=== PATIENT | female | born 1955 | race Caucasian/White ===

== ENCOUNTER 2016-07-03 10:36 | Observation (INO) | payer MEDICARE, MEDICAID ==
[~2016-07-03] VITALS: Ht 149.9 cm; Wt 60.1 kg
--- NOTE | ~2016-07-03 | CST ---
Cardiac Perfusion Imaging Demographics Patient Name ELENA Munoz Gender Female Patient Number [id number] Race Visit Number [id number] Ethnicity or Corporate ID Room Number 424 Accession Number [id number] Height 59 inches Date of 1955 Weight 137 pounds Age 61 year(s) BSA 1.57 m Referring Physician Chun Ortiz MD BMI 27.67 kg/m Interpreting [facility] Date of study 07/04/2016 Physician King Juan Harding MD Supervising MD/MLP King Juan Harding MD NM Technologist Ramiro Fried, [facility] Ordering Physician Chun Ortiz MD Stress water supply technician Stress ECG Reading [facility] Nurse Angela Ruiz Physician King Juan Scott The procedure was explained in detail to the patient. Risks, complications and alternative treatments were reviewed. Written consent was obtained. Medications Reviewed with Patient prior to Procedure. Procedure Procedure Type: Nuclear Stress Test:Pharmacological, Cardiac Study SF Procedure Start time: 07/04/2016 07:30 Indications: Chest discomfort. Risk Factors The patient risk factors include:Current/Recent(w/in 1 year) tobacco use, hypertension and chronic lung disease. Conclusions Summary Perfusion Images: The overall quality of the study is good. Left ventricular cavity is noted to be normal on the stress and rest studies. There is no evidence of abnormal lung activity. The right ventricle is not visualized and cannot be assessed. Stress SPECT images demonstrate homogenous tracer distribution throughout the myocardium. Rest SPECT images demonstrate homogenous tracer distribution throughout the myocardium. Gated SPECT imaging reveals normal myocardial thickening and wall motion. The left ventricular ejection fraction was calculated to be 72%. Impression ECG portion of stress test is clinically negative for ischemia by diagnostic criteria. Myocardial perfusion imaging is normal. Overall left ventricular systolic function was normal without regional wall motion abnormalities. There are no previous studies for comparison. Stress Protocols Resting ECG Normal sinus rhythm. ST and T waves consistent with LVH. Resting HR:66 bpm Resting BP:144/82 mmHg Stress Protocol:Pharmacologic Predicted HR: 159 bpm Test duration: 06:00 min Reason for termination:Infusion complete ECG Findings Normal sinus rhythm. ST and T waves consistent with LVH Symptoms Vomiting Complications Procedure complication: None. Stress Interpretation Appropriate hemodynamic response to Lexiscan. No significant ST-T wave changes with Lexiscan. ECG portion is negative for ischemia by diagnostic criteria. Imaging Results Summed scores - Summed stress score: 0 - Summed rest score: 0 - Summed difference score: 0 Stress ejection Ejection fraction:72 % EDV :65 ml ESV :18 ml Stroke volume :47 ml LV mass :102 gr Imaging Protocols Rest Stress Isotope:Tc99m Myoview IV Isotope: Tc99m Myoview IV Isotope dose:10.6 mCi Isotope dose:32.1 mCi Date:07/04/2016 06:15 Date:07/04/2016 07:30 Technique: SPECT Technique: Gated Supine SPECT Supine IV remains in place after procedure. Scan Time:30 minutes post injection Scan Time:15-30 minutes post injection Procedure Medications - Regadenoson (Lexiscan) 0.4 mg IV over 10-15 sec. I.V. 0.4 mg. - Aminophylline 50 mg IV I.V. 150 mg. Medications administered per verbal order and read back to physician prior to administration. Medical History Admission Data Admission date: 07/03/2016 Admission Time: 12:40 Hospital Status: Inpatient. Signatures
[~2016-07-03 10:36] MED LIST: CALCIUM 600 +1 EAC2 PO; GABAPENTIN100 MG PO; LAMICTAL200 MG PO; LISINOPRIL-HCT1 EAC2 PO; PRISTIQ50 MG PO; PROTONIX40 MG PO; SYNTHROID DPS0.15 MG PO; VITAMIN B-12500 MCG PO; VITAMIN C100 MG PO; VITAMIN D31000 UNIT PO; WELLBUTRIN XL150 MG PO
--- NOTE | 2016-07-05 14:51 | HP ---
ADMIT: 07/03/2016 RM/LOC: 424 [facility] MR#: [id number] [id number] [facility] [address] [place], [place] [address] [facility] [address] [place] [address] History and Physical SEX: F AGE: 61 : 1955 DATE OF SERVICE: CHIEF COMPLAINT: Chest pain. HISTORY OF PRESENT ILLNESS: The patient is a 61-year-old female, normally sees Dr. Morales in the clinic, who looks aged beyond her years. She reports onset this morning around 8:00 a.m. of substernal chest pain. Overall nonradiating. Has some associated shortness of breath with it. Just some chest heaviness and occasional sharp pain. Has not had anything similar to this in the past. Last had a stress test about 13 years ago, which was negative she states. Otherwise, no real major cardiac history other than hypertension, poorly controlled. Recently was in the office and had some change in her blood pressure medications. There was recently change in medications for her history of peptic ulcer disease with improvement of her symptoms in that regard. This feels nothing like it she states. Otherwise, no nausea. No vomiting. No diaphoresis. No new cough. No new fevers. No chills. PAST MEDICAL HISTORY: 1. Hypothyroidism. 2. History of appendectomy. 3. History of Marilin-en-Y gastric bypass. 4. COPD, severe. 5. Ongoing tobacco abuse. 6. 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 7. Vitamin D deficiency. 8. Iron deficiency. 9. Positional sleep apnea. 10.Bipolar disorder. MEDICATIONS: She is on: 1. Amlodipine. 2. Bupropion. 3. Cetirizine. 4. Vitamin D3. 5. Fluticasone. 6. Lamictal. 7. Synthroid. 8. Lisinopril. 9. Hydrochlorothiazide. 10.Protonix. 11.Carafate. 12.Anoro Ellipta inhaler. FAMILY HISTORY: Significant for stroke in her mother. PAST SURGICAL HISTORY: 1. C-sections. ADMIT: 07/03/2016 RM/LOC: 424 [facility] MR#: [id number] [address] [address] PAR[facility] PARKER [address] [address] History and Physical SEX: F AGE: 61 : 1955 2. Gastric bypass with revision. 3. Cholecystectomy. 4. Cataract surgery. 5. Urethral surgery. 6. History of esophageal dilation. SOCIAL HISTORY: Lives at home. Tobacco history: She continues to smoke for many years. No ongoing now. REVIEW OF SYSTEMS: As per HPI. Otherwise, completely reviewed and negative. PHYSICAL EXAMINATION: VITAL SIGNS: Temperature 97.0, pulse 62, respiratory rate 20, blood pressure 150/71, and O2 saturation 95% on room air. GENERAL: She is alert and oriented x3. No acute distress. Ill-appearing overall. HEENT: Normocephalic and atraumatic. Pupils are equal bilaterally. Dry mucous membranes. NECK: No lymphadenopathy. Soft, supple. Trachea midline. LUNGS: Clear to auscultation bilaterally. No wheezes, rales, or rhonchi. HEART: Regular rate and rhythm. No murmurs, rubs, or gallops. PMI at 5th intercostal space. ABDOMEN: Soft, nontender, and nondistended. Bowel sounds present. EXTREMITIES: No cyanosis, clubbing, or edema. 2+ dorsal pedal pulses present bilaterally. MUSCULOSKELETAL: 5/5 strength in all 4 extremities. NEUROLOGICAL: No focal deficits noted. Cranial nerves II through XII grossly intact. SKIN: No rashes noted. Very dry. PSYCHIATRIC: Somewhat flat affect. Interacts well with her daughter. LABORATORY AND X-RAY DATA: Her EKG is reviewed. Some lateral nonspecific T- wave inversion changes. Otherwise, sinus rhythm without acute findings. Troponin is negative. Hemoglobin 16.1. Creatinine 1.1 and potassium 3.6. ADMIT: 07/03/2016 RM/LOC: 424 [facility] MR#: [id number] [address] [address] [facility] [address] [facility] [address] [place] [address] History and Physical SEX: F AGE: 61 : 1955 Chest x-ray is reviewed and is negative. ASSESSMENT: 1. Chest pain. 2. Hypertension. 3. Chronic obstructive pulmonary disease. 4. Gastric bypass history. 5. History of peptic ulcer disease. PLAN: We will continue her PPI, trend her troponin. I would recheck her EKG in the morning. We will get a stress test given her risk factors, hypertension, ongoing tobacco abuse. The patient is agreeable to plan. Braulio Mccollum MD/ ras JOB #: [id number] CC: Braulio Mccollum, Attending Physician Braulio Mccollum, Family Physician
[2016-07-05] MEDS ORDERED: SYNTHROID DPS0.2 MG PO (17:13)
[2016-07-05] MEDS ORDERED: PROTONIX40 MG PO (17:13)
[2016-07-05] MEDS ORDERED: VITAMIN D31000 UNIT PO (17:14)
[2016-07-05] MEDS ORDERED: CARAFATE D1 GM/10 ML PO (17:14)
[2016-07-05] MEDS ORDERED: ZYRTEC DPS10 MG PO (17:14)
[2016-07-05] MEDS ORDERED: CYANOCOBAL1000 MCG/1 IM (17:15)
[2016-07-05] MEDS ORDERED: ZESTORETIC 20/21 TAB PO (17:16)
[2016-07-05] MEDS ORDERED: NORVASC5 MG PO (17:17)
[2016-07-05] MEDS ORDERED: WELLBUTRIN XL300 MG PO (17:17)
[2016-07-05] MEDS ORDERED: ANORO ELLIPTA 62.1 - IH (17:17)
[2016-07-05] MEDS ORDERED: EFFEXOR XR75 MG PO (17:17)
--- NOTE | 2016-07-06 09:27 | DS ---
ADMIT: 07/03/2016 RM/LOC: 424 [facility] MR#: [id number] [address] [address] RICHARD PARKEROnel Munoz [address] [address] Discharge Summary SEX: F AGE: 61 : 1955 ADMISSION DATE: 07/03/2016 DISCHARGE DATE: 07/04/2016 DISCHARGE DIAGNOSES: 1. Chest pain atypical with noncardiac origin. 2. Negative stress test. 3. History of gastric bypass surgery. 4. Hypertension. 5. Status post cholecystectomy. 6. History of CVA (cerebrovascular accident). 7. History of uterine ablation. 8. Severe depression. 9. History of suicide attempt. 10.History of COPD (chronic obstructive pulmonary disease). 11.B12 deficiency. 12.Hypothyroidism. HOSPITAL COURSE: The patient was admitted. She was continued on her home medications. She had serial cardiac enzymes and EKGs done, which were not significant, showed no ischemic changes. She had a stress test which was normal. Therefore, it was felt that she was stable to be discharged home with outpatient workup of her of her chest pain. Otherwise, she was discharged on her home medications, which were not changed at all. Please see the chart for further summary. Leydi Morales MD/ dana JOB #: [id number] CC: Leydi Morales MD, Attending Physician Braulio Mccollum MD, Family Physician
--- NOTE | 2016-07-08 10:35 | ER ---
ADMIT: 07/03/2016 RM/LOC: [address] [facility] MR#: [id number] [id number] [facility] [address] [place], [place] [address] [facility] PARKER [address] [facility] [address] [place] [address] Emergency Room Report SEX: F AGE: 61 : 1955 DATE: 07/03/2016 ADDENDUM: A 61-year-old white female, coming in with chest pain. She is a long-standing smoker. Has COPD. Has peripheral vascular disease. She has had a gastric bypass in the past. She has hypothyroidism. Peripheral vascular disease is questionable she has not had any bypass or anything. The COPD is significant and longstanding. Nitroglycerin took her pain away. She continued to keep smoking even on her COPD. At this time, I spoke to Dr. Mccollum, who will admit as a rule out for Dr. Morales. CONDITION ON DISCHARGE: Serious, but stable. Nikos Villaseñor MD/ modl JOB #: [id number] CC: Braulio Mccollum MD, Attending Physician Braulio Mccollum MD, Family Physician
[2016-11-23] MEDS ORDERED: LIPITOR80 MG PO (16:06)
[2016-11-23] MEDS ORDERED: VITAMIN C1000 MG PO (16:07)
[2016-11-23] MEDS ORDERED: ASPIRIN EC325 MG PO (16:07)
[2016-11-23] MEDS ORDERED: NEXIUM40 MG PO (16:08)
[2016-11-23] MEDS ORDERED: FLONASE 0.05% D16 GM NS (16:08)
[2016-11-23] MEDS ORDERED: ATROVENT NASAL15 ML NS (16:08)
[2016-11-23] MEDS ORDERED: OYSTER SHELL C500 MG PO (16:09)
[2016-11-23] MEDS ORDERED: PROVENTIL HFA6.7 GM IH (16:09)
[2016-11-23] MEDS ORDERED: COLACE-DPS100 MG PO (16:09)
== END 2016-07-04 13:21 | disposition home or self-care (01) ==
LOC: ER 10:36 → 4PCU 12:40
PROVIDERS: ADMIT Internal Medicine
DX: R07.89 Other chest pain (principal); I10 Essential (primary) hypertension; F32.9 Major depressive disorder, single episode, unspecified; E03.9 Hypothyroidism, unspecified; J44.9 Chronic obstructive pulmonary disease, unspecified; E53.8 Deficiency of other specified B group vitamins; Z90.49 Acquired absence of other specified parts of digestive tract; F31.9 Bipolar disorder, unspecified; Z79.899 Other long term (current) drug therapy; Z98.890 Other specified postprocedural states; Z98.49 Cataract extraction status, unspecified eye